=== PATIENT | female | born 1960 | race Caucasian/White ===

== ENCOUNTER 2021-06-05 10:33 | Outpatient (CLI) | payer OTHER ==
[2021-06-05 21:02] LABS: SARS-CoV-2 PCR by NAA Not Detected (NotDetected)
== END 2021-06-05 10:34 | disposition home or self-care (01) ==
LOC: CSHLAB 10:33
PROVIDERS: ATTEND Orthopaedic Surgery
DX: Z20.822 Contact with and (suspected) exposure to COVID-19 (principal)
CPT/HCPCS: U0003; U0005

== ENCOUNTER 2021-09-06 21:23 | Emergency (ER) | payer OTHER ==
[2021-09-06] MEDS ORDERED: Acetaminophen 325 MG TAB ONE (23:12)
== END 2021-09-07 00:50 | disposition home or self-care (01) ==
LOC: CSHERS 21:23
DX: S00.83XA Contusion of other part of head, initial encounter (principal); S49.92XA Unspecified injury of left shoulder and upper arm, initial encounter; S49.91XA Unspecified injury of right shoulder and upper arm, initial encounter; E11.9 Type 2 diabetes mellitus without complications; I10 Essential (primary) hypertension; F17.210 Nicotine dependence, cigarettes, uncomplicated; Z79.899 Other long term (current) drug therapy; Y04.0XXA Assault by unarmed brawl or fight, initial encounter
CPT/HCPCS: 70450; 70486; 71045; 72125

== ENCOUNTER 2022-06-16 14:40 | Inpatient (IN) | payer OTHER ==
[2022-06-16 15:23] LABS: #Basophils 0.1 10x3/uL (0.0-0.2); #Monocytes 1.1 10x3/uL (0.0-1.1); #Neutrophils 13.9 10x3/uL (1.5-8.4); %Basophils 0.4 % (0.0-2.0); %Eosinophils 0.1 % (0.0-6.0); %Lymphocytes 7.1 % (18.0-47.0); %Monocytes 6.6 % (0.0-10.0); %Neutrophils 85.2 % (40.0-75.0); Hemoglobin 10.5 g/dL (12.0-15.5); Mean Corpuscular HGB CONC 30.3 g/dL (32.0-36.0); Mean Corpuscular Volume 88.9 fl (81.6-98.3); Mean Platelet Volume 10.3 fl (7.4-10.4); Platelet Count 282 10x3/uL (150-450); RBC Distribution Width 16.7 % (11.5-14.5); Red Blood Cell (RBC) Count 3.89 10x6/uL (3.90-5.03); White Blood Cell (WBC) Count 16.3 10x3/uL (3.5-10.5)
[2022-06-16 16:00] LABS: Bilirubin Neg (Negative); Blood, Urine Negative (Negative); Clarity Slightly Cloudy (Clear); Glucose, Urine (Dipstick) Normal (Negative); Ketone, Urine Negative (Negative); Leukocyte 25 (Negative); Nitrite Negative (Negative); Protein, Urine (Dipstick) 100 mg/dl (Neg-Trace); Specific Gravity, Urine 1.025 (1.005-1.030); Urobilinogen Normal mg/dL (Less than 2)
[2022-06-16 16:08] LABS: Amphetamine Not Detected (NotDetected); Barbiturates Screen Not Detected (NotDetected); Benzodiazepine Screen Not Detected (NotDetected); Cocaine Metabolite Screen Not Detected (NotDetected); Methadone Not Detected (NotDetected); Methamphetamine Not Detected (NotDetected); Opiate Screen Detected (NotDetected); Oxycodone Screen Not Detected (NotDetected); Phencyclidine (PCP) Not Detected (NotDetected); THC/Cannabinoid Screen Not Detected (NotDetected); Tricyclic Screen Not Detected (NotDetected)
[2022-06-16 16:17] LABS: Bacteria/HPF 1+ HPF (None Seen); RBC/HPF 0-3 HPF (0-3); Squamous Epithelial 0-3 HPF (0-3)
[2022-06-16 16:25] LABS: ALT (SGPT) 36 U/L (8-55); AST (SGOT) 35 U/L (5-34); Albumin 3.4 g/dL (3.5-5.0); Alkaline Phosphatase 158 U/L (40-110); Anion Gap 16 mmol/L (10-20); BUN (Urea Nitrogen) 49 mg/dL (9.8-20.1); Bilirubin, Total 0.5 mg/dL (0.2-1.2); Calc. Creatinine Clearance 0 mL/min (70-130); Calcium 8.9 mg/dL (7.8-10.44); Carbon Dioxide 27 mmol/L (22-29); Chloride 99 mmol/L (98-107); Estimated GFR 28; Glucose 87 mg/dL (70-105); Potassium 4.1 mmol/L (3.5-5.1); Protein, Total 7.4 g/dL (6.0-8.3); Sodium 138 mmol/L (136-145)
[2022-06-16] MEDS ORDERED: Senokot S 8.6-50 MG TAB PO PRN (20:33)
[2022-06-16] MEDS ORDERED: Lactated Ringer's 1,000 ML IV SCH (21:00)
[2022-06-16] MEDS ORDERED: Famotidine 20 MG TAB PO SCH (21:00)
[2022-06-16] MEDS ORDERED: TEMAZEPAM 7.5 MG PO SCH (21:00)
[2022-06-16] MEDS ORDERED: Loperamide HCl 2 MG CAP PO PRN (21:00)
[2022-06-16 21:05] VITALS: BMI 34.7
[2022-06-17] MEDS: busPIRone HCl 5 MG TAB PO SCH ×2 (00:02→09:29)
[2022-06-17] MEDS: Atorvastatin Calcium 40 MG TAB PO SCH ×2 (00:02→22:15)
[2022-06-17] MEDS: Gabapentin 300 MG CAP PO SCH ×2 (00:02→09:30)
[2022-06-17] MEDS: Heparin 5,000 UNITS/ML VIAL SC SCH ×3 (00:06→22:15)
[2022-06-17 04:24] LABS: #Basophils 0.1 10x3/uL (0.0-0.2); #Monocytes 1.2 10x3/uL (0.0-1.1); %Basophils 0.3 % (0.0-2.0); %Eosinophils 0.1 % (0.0-6.0); %Lymphocytes 7.5 % (18.0-47.0); %Monocytes 7.7 % (0.0-10.0); %Neutrophils 83.8 % (40.0-75.0); Hemoglobin 10.6 g/dL (12.0-15.5); Mean Corpuscular HGB CONC 30.4 g/dL (32.0-36.0); Mean Corpuscular Hemoglobin 26.8 pg (27.0-33.0); Mean Corpuscular Volume 88.1 fl (81.6-98.3); Mean Platelet Volume 10.2 fl (7.4-10.4); Platelet Count 287 10x3/uL (150-450); RBC Distribution Width 16.1 % (11.5-14.5); Red Blood Cell (RBC) Count 3.96 10x6/uL (3.90-5.03); White Blood Cell (WBC) Count 15.5 10x3/uL (3.5-10.5)
[2022-06-17 04:36] LABS: Anion Gap 17 mmol/L (10-20); BUN (Urea Nitrogen) 39 mg/dL (9.8-20.1); Calc. Creatinine Clearance 59 mL/min (70-130); Calcium 8.7 mg/dL (7.8-10.44); Carbon Dioxide 31 mmol/L (22-29); Chloride 102 mmol/L (98-107); Estimated GFR 42; Potassium 3.7 mmol/L (3.5-5.1); Sodium 146 mmol/L (136-145)
[2022-06-17 04:40] LABS: Glucose 46 mg/dL (70-105)
[2022-06-17] MEDS ORDERED: Dextrose 5% in Water 1,000 ML IV PRN (05:12)
[2022-06-17] MEDS ORDERED: Dextrose 50% Abboject 50 ML SYRINGE SLOW IVP PRN (05:12)
[2022-06-17] MEDS ORDERED: Dextrose 50% Abboject 50 ML SYRINGE ONE (05:14)
[2022-06-17] MEDS ORDERED: Ferrous Sulfate 325 MG TAB PO SCH (08:00)
[2022-06-17] MEDS ORDERED: Famotidine 20 MG TAB PO SCH (09:00)
[2022-06-17] MEDS ORDERED: Metoprolol Tartrate 25 MG TAB PO SCH (09:00)
[2022-06-17] MEDS ORDERED: LIRAGLUTIDE TOP SCH (09:00)
[2022-06-17] MEDS: Aspirin 81 mg Enteric Coated Tablet PO SCH (09:30)
[2022-06-17] MEDS: cefTRIAXone\\ROCEPHIN 2 GM in Sodium Chloride 0.9% 100 ML IVPB SCH (09:38)
[2022-06-17 12:48] LABS: Hemoglobin A1c 7.2 % (4.0-6.0)
[2022-06-17] MEDS ORDERED: Sodium Chloride 0.9% 1,000 ML IV SCH (14:15)
[2022-06-17] MEDS ORDERED: Acetaminophen/Codeine 30-300mg Tablet PO SCH (22:45)
[2022-06-18] MEDS ORDERED: Amlodipine 5 MG TAB PO SCH (01:00)
[2022-06-18] MEDS ORDERED: hydrALAZINE 20 MG/ML VIAL SLOW IVP SCH (04:00)
[2022-06-18] MEDS ORDERED: Lorazepam 2 MG/ML VIAL SLOW IVP SCH (05:00)
[2022-06-18] MEDS ORDERED: Nitroglycerin 2% Ointment 1 INCH/1 GM Packet TOP SCH (05:30)
[2022-06-18 06:16] LABS: #Monocytes 0.7 10x3/uL (0.0-1.1); %Basophils 0.4 % (0.0-2.0); %Eosinophils 0.3 % (0.0-6.0); %Lymphocytes 8.4 % (18.0-47.0); %Monocytes 6.3 % (0.0-10.0); %Neutrophils 83.8 % (40.0-75.0); Mean Corpuscular HGB CONC 30.8 g/dL (32.0-36.0); Mean Corpuscular Volume 87.6 fl (81.6-98.3); Mean Platelet Volume 9.7 fl (7.4-10.4); Platelet Count 294 10x3/uL (150-450); RBC Distribution Width 15.7 % (11.5-14.5); Red Blood Cell (RBC) Count 4.44 10x6/uL (3.90-5.03); White Blood Cell (WBC) Count 10.7 10x3/uL (3.5-10.5)
[2022-06-18 06:21] LABS: Puncture Site Other Site
[2022-06-18 06:28] LABS: ALT (SGPT) 29 U/L (8-55); AST (SGOT) 20 U/L (5-34); Albumin 3.3 g/dL (3.5-5.0); Alkaline Phosphatase 148 U/L (40-110); Anion Gap 16 mmol/L (10-20); BUN (Urea Nitrogen) 24 mg/dL (9.8-20.1); Bilirubin, Total 0.4 mg/dL (0.2-1.2); Calc. Creatinine Clearance 80 mL/min (70-130); Calcium 9.8 mg/dL (7.8-10.44); Carbon Dioxide 28 mmol/L (22-29); Chloride 103 mmol/L (98-107); Estimated GFR 61; Globulin 4.6 g/dL (2.4-3.5); Glucose 159 mg/dL (70-105); Potassium 3.6 mmol/L (3.5-5.1); Protein, Total 7.9 g/dL (6.0-8.3); Sodium 143 mmol/L (136-145)
[2022-06-18] MEDS: Insulin Regular 300 UNITS/3 ML VIAL SC PRN ×2 (06:44→13:24)
[2022-06-18 06:49] LABS: CKMB 2.4 ng/mL (0-6.6)
[2022-06-18] MEDS ORDERED: Docusate 100 MG CAP PO SCH (09:00)
[2022-06-18] MEDS: Aspirin 81 mg Enteric Coated Tablet PO SCH (09:11)
[2022-06-18] MEDS: NIFEdipine XL 30 MG TAB PO PRN (09:11)
[2022-06-18] MEDS: Metoprolol Tartrate 25 MG TAB PO SCH ×2 (09:11→21:30)
[2022-06-18] MEDS: Clopidogrel Bisulfate 75 MG TAB PO SCH (09:11)
[2022-06-18] MEDS: cefTRIAXone\\ROCEPHIN 2 GM in Sodium Chloride 0.9% 100 ML IVPB SCH (09:11)
[2022-06-18] MEDS: Acetaminophen 325 MG TAB PO PRN (09:12)
[2022-06-18] MEDS: Heparin 5,000 UNITS/ML VIAL SC SCH ×2 (09:12→21:32)
[2022-06-18] MEDS ORDERED: Acetaminophen/Codeine 30-300mg Tablet PO PRN (11:48)
[2022-06-18 14:09] LABS: Base Excess 5.3 mEq/L (-2 - +2); Calcium, Ionized (venous) 1.14 mmol/L (1.16-1.32); Chloride (VBG) 102 mmol/L (98-106); Critical Notified By: CP.PH; Hematocrit-VBG 39 % (36.0-47.0); Hemoglobin (Hb) 13.2 g/dL (11.7-16.0); Potassium (VBG) 3.54 mmol/L (3.70-5.30); RapidComm Collect By LAB.YY
[2022-06-18] MEDS: Gabapentin 300 MG CAP PO SCH ×2 (16:43→21:30)
[2022-06-18] MEDS ORDERED: busPIRone HCl 15 MG TAB PO SCH (17:00)
[2022-06-18] MEDS ORDERED: Gabapentin 300 MG CAP PO SCH (17:00)
[2022-06-18] MEDS: Acetaminophen/Codeine 30-300mg Tablet PO PRN ×2 (17:13→21:31)
[2022-06-18] MEDS ORDERED: Senokot S 8.6-50 MG TAB PO SCH (21:00)
[2022-06-18] MEDS: DULoxetine 30 MG CAP PO SCH (21:29)
[2022-06-18] MEDS: busPIRone HCl 15 MG TAB PO SCH (21:30)
[2022-06-18] MEDS: Senokot S 8.6-50 MG TAB PO SCH (21:31)
[2022-06-18] MEDS: Atorvastatin Calcium 40 MG TAB PO SCH (21:31)
[2022-06-19 06:04] LABS: #Basophils 0.1 10x3/uL (0.0-0.2); #Eosinphils 0.1 10x3/uL (0.0-0.5); #Monocytes 0.8 10x3/uL (0.0-1.1); #Neutrophils 6.4 10x3/uL (1.5-8.4); %Basophils 0.8 % (0.0-2.0); %Eosinophils 1.6 % (0.0-6.0); %Lymphocytes 17.9 % (18.0-47.0); %Monocytes 8.6 % (0.0-10.0); %Neutrophils 70.4 % (40.0-75.0); Hemoglobin 11.9 g/dL (12.0-15.5); Mean Corpuscular HGB CONC 30.7 g/dL (32.0-36.0); Mean Corpuscular Hemoglobin 26.6 pg (27.0-33.0); Mean Corpuscular Volume 86.4 fl (81.6-98.3); Mean Platelet Volume 9.3 fl (7.4-10.4); Platelet Count 325 10x3/uL (150-450); RBC Distribution Width 15.8 % (11.5-14.5); Red Blood Cell (RBC) Count 4.48 10x6/uL (3.90-5.03)
[2022-06-19 06:15] LABS: Anion Gap 14 mmol/L (10-20); BUN (Urea Nitrogen) 24 mg/dL (9.8-20.1); Calc. Creatinine Clearance 83 mL/min (70-130); Calcium 9.3 mg/dL (7.8-10.44); Carbon Dioxide 29 mmol/L (22-29); Chloride 103 mmol/L (98-107); Estimated GFR 64; Glucose 119 mg/dL (70-105); Magnesium 2.3 mg/dL (1.6-2.6); Potassium 3.5 mmol/L (3.5-5.1); Sodium 142 mmol/L (136-145)
[2022-06-19] MEDS: Aspirin 81 mg Enteric Coated Tablet PO SCH (09:39)
[2022-06-19] MEDS: Senokot S 8.6-50 MG TAB PO SCH ×2 (09:39→21:39)
[2022-06-19] MEDS: Gabapentin 300 MG CAP PO SCH ×3 (09:40→21:25)
[2022-06-19] MEDS: busPIRone HCl 15 MG TAB PO SCH ×2 (09:40→21:26)
[2022-06-19] MEDS: NIFEdipine XL 30 MG TAB PO PRN (09:40)
[2022-06-19] MEDS: Metoprolol Tartrate 25 MG TAB PO SCH ×2 (09:41→21:26)
[2022-06-19] MEDS: Clopidogrel Bisulfate 75 MG TAB PO SCH (09:41)
[2022-06-19] MEDS: Heparin 5,000 UNITS/ML VIAL SC SCH ×2 (09:41→21:26)
[2022-06-19] MEDS: Acetaminophen/Codeine 30-300mg Tablet PO PRN ×3 (09:47→23:58)
[2022-06-19] MEDS: cefTRIAXone\\ROCEPHIN 2 GM in Sodium Chloride 0.9% 100 ML IVPB SCH (09:55)
[2022-06-19] MEDS ORDERED: Senokot S 8.6-50 MG TAB PO PRN (10:00)
[2022-06-19] MEDS: Insulin Regular 300 UNITS/3 ML VIAL SC PRN ×3 (13:43→21:35)
[2022-06-19] MEDS: DULoxetine 30 MG CAP PO SCH (21:25)
[2022-06-19] MEDS: Atorvastatin Calcium 40 MG TAB PO SCH (21:25)
[2022-06-20] MEDS: Acetaminophen 325 MG TAB PO PRN (02:10)
[2022-06-20] MEDS: Acetaminophen/Codeine 30-300mg Tablet PO PRN ×5 (03:43→22:58)
[2022-06-20] MEDS ORDERED: traMADol HCl 50 MG TAB PO SCH (03:45)
[2022-06-20] MEDS: Insulin Regular 300 UNITS/3 ML VIAL SC PRN ×4 (04:54→21:06)
[2022-06-20] MEDS: cefTRIAXone\\ROCEPHIN 2 GM in Sodium Chloride 0.9% 100 ML IVPB SCH (08:44)
[2022-06-20] MEDS: Heparin 5,000 UNITS/ML VIAL SC SCH ×2 (08:44→20:58)
[2022-06-20] MEDS: busPIRone HCl 15 MG TAB PO SCH ×2 (08:45→20:53)
[2022-06-20] MEDS: Gabapentin 300 MG CAP PO SCH ×3 (08:45→20:53)
[2022-06-20] MEDS: Metoprolol Tartrate 25 MG TAB PO SCH ×2 (08:45→20:54)
[2022-06-20] MEDS: Aspirin 81 mg Enteric Coated Tablet PO SCH (08:45)
[2022-06-20] MEDS: NIFEdipine XL 30 MG TAB PO PRN (08:45)
[2022-06-20] MEDS: Clopidogrel Bisulfate 75 MG TAB PO SCH (08:46)
[2022-06-20] MEDS: Senokot S 8.6-50 MG TAB PO SCH ×2 (08:46→20:53)
[2022-06-20] MEDS ORDERED: Lorazepam 0.5 MG TAB PO PRN (17:37)
[2022-06-20] MEDS: Atorvastatin Calcium 40 MG TAB PO SCH (20:54)
[2022-06-20] MEDS: Dicyclomine 10 MG CAP PO SCH (20:54)
[2022-06-20] MEDS: Cefdinir 300 MG CAP PO SCH (20:54)
[2022-06-20] MEDS ORDERED: DULoxetine 30 MG CAP PO SCH (21:00)
[2022-06-20] MEDS ORDERED: Melatonin 3 MG TAB PO SCH (21:00)
[2022-06-20] MEDS ORDERED: Lantus 1000 UNITS/10 ML VIAL SC SCH (21:00)
[2022-06-21] MEDS: Acetaminophen/Codeine 30-300mg Tablet PO PRN ×2 (05:09→14:22)
[2022-06-21] MEDS: Insulin Regular 300 UNITS/3 ML VIAL SC PRN (05:10)
[2022-06-21] MEDS: busPIRone HCl 15 MG TAB PO SCH (08:40)
[2022-06-21] MEDS: Heparin 5,000 UNITS/ML VIAL SC SCH (08:40)
[2022-06-21] MEDS: Aspirin 81 mg Enteric Coated Tablet PO SCH (08:41)
[2022-06-21] MEDS: NIFEdipine XL 30 MG TAB PO PRN (08:41)
[2022-06-21] MEDS: Clopidogrel Bisulfate 75 MG TAB PO SCH (08:41)
[2022-06-21] MEDS: Metoprolol Tartrate 25 MG TAB PO SCH (08:41)
[2022-06-21] MEDS: Gabapentin 300 MG CAP PO SCH ×2 (08:42→14:22)
[2022-06-21] MEDS: Dicyclomine 10 MG CAP PO SCH (08:42)
[2022-06-21] MEDS: Senokot S 8.6-50 MG TAB PO SCH (08:42)
[2022-06-21] MEDS: Cefdinir 300 MG CAP PO SCH (08:42)
[2022-06-21] MEDS ORDERED: Torsemide 100 MG TAB PO SCH (09:00)
[2022-06-21 12:05] VITALS: BP 145/77; TEMP 98.2
== END 2022-06-21 14:46 | DRG 689 ==
LOC: CSHERS 14:40 → CSHTELE 20:47
PROVIDERS: ADMIT Internal Medicine; ATTEND Internal Medicine
PROC: 0T9B70Z Drainage of Bladder with Drainage Device, Via Natural or Artificial Opening (ICD-10-PCS; principal; 2022-06-19)
DX: N13.6 Pyonephrosis (principal); G93.41 Metabolic encephalopathy; A52.16 Charcot's arthropathy (tabetic); R33.9 Retention of urine, unspecified; N17.9 Acute kidney failure, unspecified; G89.29 Other chronic pain; N18.9 Chronic kidney disease, unspecified; E11.22 Type 2 diabetes mellitus with diabetic chronic kidney disease; I12.9 Hypertensive chronic kidney disease with stage 1 through stage 4 chronic kidney disease, or unspecified chronic kidney disease; J44.9 Chronic obstructive pulmonary disease, unspecified; E78.5 Hyperlipidemia, unspecified; I25.10 Atherosclerotic heart disease of native coronary artery without angina pectoris; E78.00 Pure hypercholesterolemia, unspecified; E11.42 Type 2 diabetes mellitus with diabetic polyneuropathy; F41.9 Anxiety disorder, unspecified; F32.A Depression, unspecified; D63.1 Anemia in chronic kidney disease; E11.649 Type 2 diabetes mellitus with hypoglycemia without coma; Z88.8 Allergy status to other drugs, medicaments and biological substances; Z79.4 Long term (current) use of insulin; Z79.82 Long term (current) use of aspirin; Z95.1 Presence of aortocoronary bypass graft; Z90.49 Acquired absence of other specified parts of digestive tract; Z90.710 Acquired absence of both cervix and uterus; Z98.890 Other specified postprocedural states
CPT/HCPCS: 36415; 36416; 51701; 70450; 71045; 74176; 80048; 80053; 80306; 81003; 81015; 82140; 82553; 82805; 83036; 83605; 83735; 83880; 84484; 85025; 87040; 87086; 93005; 93010; 94760; 94762; 96360; 96361; J0360; J0696; J1644; J1815; J2060; J3490; J7120; J7999

== ENCOUNTER 2022-08-17 21:21 | Emergency (ER) | payer OTHER ==
[2022-08-17] MEDS ORDERED: HYDROcodone/Acetaminophen 5/325 mg Tablet ONE (22:05)
== END 2022-08-18 00:47 | disposition home or self-care (01) ==
LOC: CSHERS 21:21
DX: S50.01XA Contusion of right elbow, initial encounter (principal); S80.01XA Contusion of right knee, initial encounter; E78.2 Mixed hyperlipidemia; J44.9 Chronic obstructive pulmonary disease, unspecified; E11.42 Type 2 diabetes mellitus with diabetic polyneuropathy; F17.210 Nicotine dependence, cigarettes, uncomplicated; W18.30XA Fall on same level, unspecified, initial encounter

== ENCOUNTER 2022-11-06 00:15 | Emergency (ER) | payer OTHER | END 2022-11-06 02:59 | LOC: CSHERS 00:15 | DX: R07.81 Pleurodynia (principal); R07.89 Other chest pain; E11.9 Type 2 diabetes mellitus without complications; I10 Essential (primary) hypertension; J44.9 Chronic obstructive pulmonary disease, unspecified; F17.210 Nicotine dependence, cigarettes, uncomplicated; Z79.899 Other long term (current) drug therapy; Z79.4 Long term (current) use of insulin ==

== ENCOUNTER 2022-11-06 22:32 | Inpatient (IN) | payer OTHER ==
[2022-11-07 00:05] LABS: Bilirubin Neg (Negative); Blood, Urine Negative (Negative); Clarity Clear (Clear); Glucose, Urine (Dipstick) Normal (Negative); Ketone, Urine Negative (Negative); Leukocyte 100 (Negative); Nitrite Negative (Negative); Protein, Urine (Dipstick) 30 mg/dl (Neg-Trace)
[2022-11-07 00:07] LABS: ALT (SGPT) 14 U/L (8-55); AST (SGOT) 20 U/L (5-34); Albumin 3.5 g/dL (3.5-5.0); Alkaline Phosphatase 123 U/L (40-110); Anion Gap 14 mmol/L (10-20); BUN (Urea Nitrogen) 36 mg/dL (9.8-20.1); Bilirubin, Total 0.5 mg/dL (0.2-1.2); Calc. Creatinine Clearance 0 mL/min (70-130); Carbon Dioxide 29 mmol/L (22-29); Chloride 102 mmol/L (98-107); Estimated GFR 28; Globulin 3.7 g/dL (2.4-3.5); Glucose 97 mg/dL (70-105); Potassium 4.4 mmol/L (3.5-5.1); Protein, Total 7.2 g/dL (6.0-8.3); Sodium 141 mmol/L (136-145)
[2022-11-07 00:17] LABS: CAUTI Indications for Culture Alt mental st,lethar
[2022-11-07 00:18] LABS: Bacteria/HPF Rare-Few HPF (None Seen); RBC/HPF None Seen HPF (0-3); Renal Epithelial 0-3 HPF (None Seen); Squamous Epithelial 0-3 HPF (0-3); WBC/HPF 0-3 HPF (0-3)
[2022-11-07 00:18] LABS: #Eosinphils 0.1 10x3/uL (0.0-0.5); #Monocytes 0.6 10x3/uL (0.0-1.1); #Neutrophils 8.6 10x3/uL (1.5-8.4); %Basophils 0.3 % (0.0-2.0); %Eosinophils 0.6 % (0.0-6.0); %Lymphocytes 8.1 % (18.0-47.0); %Monocytes 6.1 % (0.0-10.0); %Neutrophils 83.2 % (40.0-75.0); Hematocrit 33.9 % (34.9-44.5); Hemoglobin 10.8 g/dL (12.0-15.5); Mean Corpuscular HGB CONC 31.9 g/dL (32.0-36.0); Mean Corpuscular Hemoglobin 28.4 pg (27.0-33.0); Mean Corpuscular Volume 89.2 fl (81.6-98.3); Mean Platelet Volume 9.9 fl (7.4-10.4); Platelet Count 253 10x3/uL (150-450); RBC Distribution Width 16.6 % (11.5-14.5); White Blood Cell (WBC) Count 10.4 10x3/uL (3.5-10.5)
[2022-11-07 00:19] LABS: Urine Culture Reflex No No
[2022-11-07] MEDS ORDERED: Ondansetron PF 4 MG/2 ML Vial IVP PRN (01:59)
[2022-11-07] MEDS ORDERED: Ipratropium/Albuterol 3 ML NEB NEB PRN (02:09)
[2022-11-07 02:11] LABS: Amphetamine Not Detected (NotDetected); Barbiturates Screen Not Detected (NotDetected); Benzodiazepine Screen Not Detected (NotDetected); Cocaine Metabolite Screen Not Detected (NotDetected); Methadone Not Detected (NotDetected); Methamphetamine Not Detected (NotDetected); Opiate Screen Detected (NotDetected); Oxycodone Screen Not Detected (NotDetected); Phencyclidine (PCP) Not Detected (NotDetected); THC/Cannabinoid Screen Not Detected (NotDetected); Tricyclic Screen Not Detected (NotDetected)
[2022-11-07] MEDS ORDERED: Glucagon 1 MG/ML KIT IM PRN (02:17)
[2022-11-07] MEDS ORDERED: HumaLOG 300 UNITS/3 ML VIAL SC PRN ×2 (02:17)
[2022-11-07] MEDS ORDERED: Dextrose 5% in Water 1,000 ML IV PRN (02:17)
[2022-11-07 03:14] VITALS: BMI 33.3
[2022-11-07] MEDS: Sodium Chloride 0.9% 1,000 ML IV SCH ×2 (03:22→15:57)
[2022-11-07 05:43] LABS: #Eosinphils 0.1 10x3/uL (0.0-0.5); #Monocytes 0.5 10x3/uL (0.0-1.1); #Neutrophils 6.6 10x3/uL (1.5-8.4); %Basophils 0.2 % (0.0-2.0); %Eosinophils 1.1 % (0.0-6.0); %Lymphocytes 13.7 % (18.0-47.0); %Monocytes 5.4 % (0.0-10.0); %Neutrophils 79.2 % (40.0-75.0); Hematocrit 29.9 % (34.9-44.5); Hemoglobin 9.5 g/dL (12.0-15.5); Mean Corpuscular HGB CONC 31.8 g/dL (32.0-36.0); Mean Corpuscular Hemoglobin 28.3 pg (27.0-33.0); Mean Platelet Volume 9.8 fl (7.4-10.4); Platelet Count 211 10x3/uL (150-450); RBC Distribution Width 16.3 % (11.5-14.5); Red Blood Cell (RBC) Count 3.36 10x6/uL (3.90-5.03); White Blood Cell (WBC) Count 8.3 10x3/uL (3.5-10.5)
[2022-11-07 05:57] LABS: Anion Gap 15 mmol/L (10-20); BUN (Urea Nitrogen) 28 mg/dL (9.8-20.1); Calc. Creatinine Clearance 49 mL/min (70-130); Calcium 8.4 mg/dL (7.8-10.44); Carbon Dioxide 25 mmol/L (22-29); Chloride 105 mmol/L (98-107); Estimated GFR 36; Glucose 119 mg/dL (70-105); Magnesium 2.1 mg/dL (1.6-2.6); Sodium 142 mmol/L (136-145)
[2022-11-07] MEDS ORDERED: Potassium Chloride 20 MEQ TAB PO SCH (08:00)
[2022-11-07] MEDS: NIFEdipine XL 30 MG TAB PO SCH (09:07)
[2022-11-07] MEDS: Heparin 5,000 UNITS/ML VIAL SC SCH ×2 (09:07→20:53)
[2022-11-07] MEDS: Dextrose 50% Abboject 50 ML SYRINGE SLOW IVP PRN (11:39)
[2022-11-07] MEDS: Metoprolol Tartrate 25 MG TAB PO SCH (20:53)
[2022-11-07] MEDS: Melatonin 3 MG TAB PO SCH (21:03)
[2022-11-08 05:35] LABS: #Eosinphils 0.1 10x3/uL (0.0-0.5); #Monocytes 0.6 10x3/uL (0.0-1.1); #Neutrophils 5.8 10x3/uL (1.5-8.4); %Basophils 0.4 % (0.0-2.0); %Lymphocytes 14.9 % (18.0-47.0); %Monocytes 7.8 % (0.0-10.0); %Neutrophils 75.6 % (40.0-75.0); Hemoglobin 10.8 g/dL (12.0-15.5); Mean Corpuscular HGB CONC 31.8 g/dL (32.0-36.0); Mean Corpuscular Hemoglobin 28.3 pg (27.0-33.0); Mean Corpuscular Volume 89.2 fl (81.6-98.3); Mean Platelet Volume 9.7 fl (7.4-10.4); Platelet Count 253 10x3/uL (150-450); RBC Distribution Width 16.1 % (11.5-14.5); Red Blood Cell (RBC) Count 3.81 10x6/uL (3.90-5.03); White Blood Cell (WBC) Count 7.7 10x3/uL (3.5-10.5)
[2022-11-08 05:51] LABS: Anion Gap 14 mmol/L (10-20); BUN (Urea Nitrogen) 13 mg/dL (9.8-20.1); Calc. Creatinine Clearance 78 mL/min (70-130); Carbon Dioxide 23 mmol/L (22-29); Chloride 109 mmol/L (98-107); Estimated GFR 62; Sodium 142 mmol/L (136-145)
[2022-11-08 06:00] LABS: Glucose 50 mg/dL (70-105)
[2022-11-08] MEDS: Sodium Chloride 0.9% 1,000 ML IV SCH ×2 (07:02→20:15)
[2022-11-08] MEDS ORDERED: Atropine Sulfate 1% Ophth Soln 5 ml Bottle EA EYE SCH ×2 (09:00)
[2022-11-08] MEDS: Heparin 5,000 UNITS/ML VIAL SC SCH ×2 (09:43→23:03)
[2022-11-08] MEDS: NIFEdipine XL 30 MG TAB PO SCH (09:43)
[2022-11-08] MEDS: Clopidogrel Bisulfate 75 MG TAB PO SCH (09:43)
[2022-11-08] MEDS: Acetaminophen 325 MG TAB PO PRN ×2 (10:10→21:20)
[2022-11-08] MEDS: Dextrose 50% Abboject 50 ML SYRINGE SLOW IVP PRN (10:10)
[2022-11-08] MEDS: Gabapentin 300 MG CAP PO SCH ×2 (15:25→22:51)
[2022-11-08] MEDS ORDERED: Lorazepam 0.5 MG TAB PO PRN (15:52)
[2022-11-08] MEDS ORDERED: Lidocaine 4% Patch TD SCH (21:00)
[2022-11-08] MEDS: Melatonin 3 MG TAB PO SCH (21:12)
[2022-11-08] MEDS: Metoprolol Tartrate 25 MG TAB PO SCH (21:12)
[2022-11-08] MEDS: Dicyclomine 10 MG CAP PO SCH (22:51)
[2022-11-09] MEDS: Acetaminophen/Codeine 30-300mg Tablet PO PRN ×3 (00:19→15:03)
[2022-11-09 05:09] LABS: Anion Gap 14 mmol/L (10-20); BUN (Urea Nitrogen) 13 mg/dL (9.8-20.1); Calc. Creatinine Clearance 81 mL/min (70-130); Calcium 9.3 mg/dL (7.8-10.44); Carbon Dioxide 23 mmol/L (22-29); Chloride 108 mmol/L (98-107); Estimated GFR 65; Glucose 110 mg/dL (70-105); Potassium 3.9 mmol/L (3.5-5.1); Sodium 141 mmol/L (136-145)
[2022-11-09] MEDS: Sodium Chloride 0.9% 1,000 ML IV SCH (06:27)
[2022-11-09] MEDS ORDERED: Torsemide 100 MG TAB PO SCH (09:00)
[2022-11-09] MEDS ORDERED: Docusate 100 MG CAP PO PRN (09:25)
[2022-11-09] MEDS: Heparin 5,000 UNITS/ML VIAL SC SCH ×2 (09:51→23:15)
[2022-11-09] MEDS: Dicyclomine 10 MG CAP PO SCH ×2 (09:58→23:14)
[2022-11-09] MEDS: Venlafaxine HCl XR 75 MG CAP PO SCH (10:00)
[2022-11-09] MEDS ORDERED: Alendronate Sodium 70 mg Tablet PO SCH (10:00)
[2022-11-09] MEDS: Bupropion 150 MG XL TAB PO SCH (10:01)
[2022-11-09] MEDS: Gabapentin 300 MG CAP PO SCH ×3 (10:02→23:14)
[2022-11-09] MEDS: NIFEdipine XL 30 MG TAB PO SCH (10:02)
[2022-11-09] MEDS: Clopidogrel Bisulfate 75 MG TAB PO SCH (10:03)
[2022-11-09] MEDS: Transdermal Patch Removal TOP SCH (13:00)
[2022-11-09] MEDS ORDERED: Labetalol HCl 100 MG/20 ML VIAL SLOW IVP PRN (16:06)
[2022-11-09] MEDS ORDERED: Atorvastatin Calcium 40 MG TAB PO SCH (21:00)
[2022-11-09] MEDS ORDERED: Lidocaine 4% Patch TD SCH (21:00)
[2022-11-10 05:22] LABS: Anion Gap 15 mmol/L (10-20); BUN (Urea Nitrogen) 14 mg/dL (9.8-20.1); Calc. Creatinine Clearance 68 mL/min (70-130); Calcium 9.2 mg/dL (7.8-10.44); Carbon Dioxide 22 mmol/L (22-29); Chloride 108 mmol/L (98-107); Estimated GFR 53; Glucose 100 mg/dL (70-105); Potassium 3.8 mmol/L (3.5-5.1); Sodium 141 mmol/L (136-145)
[2022-11-10] MEDS: Metoprolol Tartrate 25 MG TAB PO SCH (06:19)
[2022-11-10] MEDS: Melatonin 3 MG TAB PO SCH (06:19)
[2022-11-10] MEDS ORDERED: Ferrous Sulfate 325 MG TAB PO SCH (08:00)
[2022-11-10] MEDS ORDERED: Aspirin 81 mg Enteric Coated Tablet PO SCH (09:00)
[2022-11-10] MEDS ORDERED: Ascorbic Acid 500 mg Chewable Tablet PO SCH (09:00)
[2022-11-10] MEDS: Acetaminophen/Codeine 30-300mg Tablet PO PRN (09:05)
[2022-11-10] MEDS: Venlafaxine HCl XR 75 MG CAP PO SCH (09:07)
[2022-11-10] MEDS: Bupropion 150 MG XL TAB PO SCH (09:07)
[2022-11-10] MEDS: NIFEdipine XL 30 MG TAB PO SCH (09:07)
[2022-11-10] MEDS: Clopidogrel Bisulfate 75 MG TAB PO SCH (09:08)
[2022-11-10] MEDS: Gabapentin 300 MG CAP PO SCH (09:08)
[2022-11-10] MEDS: Dicyclomine 10 MG CAP PO SCH (09:08)
[2022-11-10] MEDS: Heparin 5,000 UNITS/ML VIAL SC SCH (10:09)
[2022-11-10] MEDS ORDERED: cloNIDine 0.1 MG TAB PO SCH (12:15)
[2022-11-10 12:44] VITALS: TEMP 97
[2022-11-10] MEDS: Transdermal Patch Removal TOP SCH (14:27)
[2022-11-10 14:44] VITALS: BP 132/81
== END 2022-11-10 15:05 | disposition home or self-care (01) | DRG 682 ==
LOC: CSHERS 22:32 → CSHTELE 11-07 01:50 → OBSVTOIN 11-09 14:24
PROVIDERS: ADMIT Internal Medicine; ATTEND Internal Medicine
DX: N17.9 Acute kidney failure, unspecified (principal); G93.41 Metabolic encephalopathy; I13.0 Hypertensive heart and chronic kidney disease with heart failure and stage 1 through stage 4 chronic kidney disease, or unspecified chronic kidney disease; I50.32 Chronic diastolic (congestive) heart failure; I25.10 Atherosclerotic heart disease of native coronary artery without angina pectoris; E78.5 Hyperlipidemia, unspecified; J44.9 Chronic obstructive pulmonary disease, unspecified; I73.9 Peripheral vascular disease, unspecified; G89.29 Other chronic pain; H54.7 Unspecified visual loss; E11.22 Type 2 diabetes mellitus with diabetic chronic kidney disease; N18.2 Chronic kidney disease, stage 2 (mild); F32.A Depression, unspecified; F41.9 Anxiety disorder, unspecified; E11.42 Type 2 diabetes mellitus with diabetic polyneuropathy; F17.210 Nicotine dependence, cigarettes, uncomplicated; Z88.5 Allergy status to narcotic agent; Z88.8 Allergy status to other drugs, medicaments and biological substances; Z79.4 Long term (current) use of insulin; Z79.899 Other long term (current) drug therapy; Z98.51 Tubal ligation status; Z95.1 Presence of aortocoronary bypass graft; Z90.49 Acquired absence of other specified parts of digestive tract; Z98.890 Other specified postprocedural states; Z80.9 Family history of malignant neoplasm, unspecified; Z83.3 Family history of diabetes mellitus
CPT/HCPCS: 36415; 36416; 70450; 70551; 71045; 80048; 80053; 80306; 81001; 83735; 84443; 85025; 87086; 94760; 96374; 96375; 96376; G0378; J1644; J2405; J7050; J7999

== ENCOUNTER 2023-01-24 19:52 | Emergency (ER) | payer OTHER ==
[2023-01-24 20:29] LABS: #Basophils 0.1 10x3/uL (0.0-0.2); #Eosinphils 0.2 10x3/uL (0.0-0.5); #Monocytes 0.7 10x3/uL (0.0-1.1); #Neutrophils 5.8 10x3/uL (1.5-8.4); %Basophils 0.8 % (0.0-2.0); %Eosinophils 2.6 % (0.0-6.0); %Lymphocytes 21.7 % (18.0-47.0); %Monocytes 8.2 % (0.0-10.0); %Neutrophils 66.5 % (40.0-75.0); Hematocrit 33.3 % (34.9-44.5); Hemoglobin 10.7 g/dL (12.0-15.5); Mean Corpuscular HGB CONC 32.1 g/dL (32.0-36.0); Mean Corpuscular Hemoglobin 29.2 pg (27.0-33.0); Mean Platelet Volume 9.7 fl (7.4-10.4); Platelet Count 256 10x3/uL (150-450); RBC Distribution Width 14.7 % (11.5-14.5); Red Blood Cell (RBC) Count 3.66 10x6/uL (3.90-5.03); White Blood Cell (WBC) Count 8.8 10x3/uL (3.5-10.5)
[2023-01-24 20:41] LABS: ALT (SGPT) 16 U/L (8-55); AST (SGOT) 14 U/L (5-34); Albumin 3.8 g/dL (3.5-5.0); Alkaline Phosphatase 104 U/L (40-110); Anion Gap 15 mmol/L (10-20); BUN (Urea Nitrogen) 39 mg/dL (9.8-20.1); Bilirubin, Total 0.4 mg/dL (0.2-1.2); Calc. Creatinine Clearance 0 mL/min (70-130); Calcium 9.5 mg/dL (7.8-10.44); Carbon Dioxide 29 mmol/L (22-29); Chloride 102 mmol/L (98-107); Estimated GFR 29; Globulin 3.5 g/dL (2.4-3.5); Glucose 86 mg/dL (70-105); Potassium 3.6 mmol/L (3.5-5.1); Protein, Total 7.3 g/dL (6.0-8.3); Sodium 142 mmol/L (136-145)
[2023-01-24 20:57] LABS: Bilirubin Neg (Negative); Blood, Urine Negative (Negative); Clarity Clear (Clear); Glucose, Urine (Dipstick) Normal (Negative); Ketone, Urine Negative (Negative); Leukocyte 100 (Negative); Nitrite Negative (Negative); Protein, Urine (Dipstick) 100 mg/dl (Neg-Trace); Urobilinogen Normal mg/dL (Less than 2)
[2023-01-24 21:12] LABS: Bacteria/HPF 2+ HPF (None Seen); CAUTI Indications for Culture Pelvic or flank pain; RBC/HPF None Seen HPF (0-3); Squamous Epithelial 0-3 HPF (0-3)
[2023-01-24 21:13] LABS: Urine Culture Reflex No No
[2023-01-24] MEDS ORDERED: Ketorolac Tromethamine 30 MG/ML VIAL ONE (22:30)
== END 2023-01-24 23:20 | disposition home or self-care (01) ==
LOC: CSHERS 19:52
DX: N39.0 Urinary tract infection, site not specified (principal); R39.2 Extrarenal uremia; E11.9 Type 2 diabetes mellitus without complications; E78.2 Mixed hyperlipidemia; I10 Essential (primary) hypertension; J44.9 Chronic obstructive pulmonary disease, unspecified; F17.210 Nicotine dependence, cigarettes, uncomplicated
CPT/HCPCS: 72131; 80053; 81001; 83605; 85025; 96361; 96374; J1885

== ENCOUNTER 2024-03-07 19:20 | Emergency (ER) | payer OTHER ==
[2024-03-07] MEDS ORDERED: fentaNYL 50 mcg/mL 1 mL Vial ONE (19:30)
[2024-03-07 20:19] LABS: ALT (SGPT) 15 U/L (8-55); AST (SGOT) 18 U/L (5-34); Albumin 2.3 g/dL (3.4-4.8); Alkaline Phosphatase 81 U/L (40-110); Anion Gap 14 mmol/L (10-20); BUN (Urea Nitrogen) 25 mg/dL (9.8-20.1); Bilirubin, Total 0.5 mg/dL (0.2-1.2); Calc. Creatinine Clearance 0 mL/min (70-130); Calcium 9.6 mg/dL (7.8-10.44); Carbon Dioxide 30 mmol/L (23-31); Chloride 98 mmol/L (98-107); Estimated GFR 41; Globulin 5.2 g/dL (2.4-3.5); Glucose 196 mg/dL (80-115); Potassium 4.3 mmol/L (3.5-5.1); Protein, Total 7.5 g/dL (5.8-8.1); Sodium 138 mmol/L (136-145)
[2024-03-07] MEDS ORDERED: cefTRIAXone (ROCEPHIN) 1 GM VIAL ONE (20:41)
[2024-03-07] MEDS ORDERED: HYDROmorphone 0.5 MG/0.5 ML SYRINGE ONE (20:41)
[2024-03-07 20:42] LABS: #Basophils 0.03 10x3/uL (0.0-0.2); #Eosinophils 0.11 10x3/uL (0.0-0.5); #Monocytes 0.71 10x3/uL (0.0-1.1); #Neutrophils 9.25 10x3/uL (1.5-8.4); %Basophils 0.3 % (0.0-2.0); %Lymphocytes 7.3 % (18.0-47.0); %Monocytes 6.5 % (0.0-10.0); %Neutrophils 84.3 % (40.0-75.0); Hematocrit 28.7 % (34.9-44.5); Hemoglobin 8.4 g/dL (12.0-15.5); Mean Corpuscular HGB CONC 29.3 g/dL (32.0-36.0); Mean Corpuscular Hemoglobin 25.3 pg (27.0-33.0); Mean Corpuscular Volume 86.4 fL (81.6-98.3); Mean Platelet Volume 9.5 fL (7.4-10.4); Platelet Count 268 10x3/uL (150-450); Red Blood Cell (RBC) Count 3.32 10x6/uL (3.90-5.03); White Blood Cell (WBC) Count 10.97 10x3/uL (3.5-10.5)
[2024-03-07] MEDS ORDERED: Gabapentin 300 MG CAP ONE (20:42)
== END 2024-03-07 22:51 ==
LOC: CSHERS 19:20
DX: S92.511A Displaced fracture of proximal phalanx of right lesser toe(s), initial encounter for closed fracture (principal); L03.115 Cellulitis of right lower limb; E11.42 Type 2 diabetes mellitus with diabetic polyneuropathy; I10 Essential (primary) hypertension; J44.9 Chronic obstructive pulmonary disease, unspecified; Z79.4 Long term (current) use of insulin; Z79.899 Other long term (current) drug therapy; Z79.51 Long term (current) use of inhaled steroids; X58.XXXA Exposure to other specified factors, initial encounter
CPT/HCPCS: 36415; 80053; 83605; 85025; 86140; 87040; 96374; 96375; J0696; J1171; J3010